=== PATIENT | female | born 1995 | race African-American/Black ===

== ENCOUNTER 2021-09-29 18:08 | Emergency (ER) | payer OTHER ==
[~2021-09-29] VITALS: Ht 175.3 cm; Wt 86.0 kg
[2021-09-29] MEDS ORDERED: ONDANSETRON HCL 4MG/2ML INJ IV STA (18:19)
[2021-09-29] MEDS ORDERED: MORPHINE SULFATE 4 MG/ML CPJ (NOT FOR IM USE) IV STA (18:19)
[2021-09-29] MEDS ORDERED: SODIUM CHLORIDE 0.9% 1,000 ML IV ONE (18:30)
[2021-09-29 19:28] LABS: BASOPHILS % 0.3 % (0.0-2.0); EOSINOPHILS % 0.4 % (0.0-5.0); HEMATOCRIT. 38.9 % (36.0-48.0); HEMOGLOBIN. 12.5 g/dL (12.0-16.0); LYMPHOCYTES % 23.9 % (20.0-50.0); MEAN CORPUSCULAR HEMOGLOBIN 28.3 pg (28.0-32.0); MEAN CORPUSCULAR VOLUME 87.8 fL (81.0-99.0); MEAN PLATELET VOLUME 8.8 fl (7.4-10.4); NEUTROPHILS % 69.4 % (40.0-76.0); PLATELET 284 x1000/uL (130-400); RED BLOOD CELL COUNT 4.43 mill/uL (4.2-5.4); RED CELL DISTRIBUTION WIDTH 16.1 % (11.6-14.6)
[2021-09-29 19:35] LABS: PROTHROMBIN TIME 10.9 sec (9.6-11.0)
[2021-09-29 19:38] LABS: HCG SCREEN NEGATIVE
[2021-09-29 19:39] LABS: CHLORIDE 106 mEq/L (98-107)
[2021-09-29 20:09] LABS: CLARITY URINE CLEAR (CLEAR); COLOR URINE YELLOW (YELLOW); KETONES URINE TRACE (NEGATIVE); LEUKOCYTE ESTERASE URINE TRACE (NEGATIVE); NITRITE URINE NEGATIVE (NEGATIVE); OCCULT BLOOD URINE NEGATIVE (NEGATIVE); PH URINE 7.5 (4.5-8.0); PROTEIN URINE NEGATIVE (NEGATIVE); SPECIFIC GRAVITY URINE 1.013 (1.005-1.030); UROBILINOGEN URINE 0.2 E.U./dL (0.2-1.0)
[2021-09-29] MEDS ORDERED: IBUP-2028 MT (21:06)
[2021-09-29] MEDS ORDERED: HYDR-4001 MT (21:06)
[2021-09-29] MEDS ORDERED: MORPHINE SULFATE 4 MG/ML CPJ (NOT FOR IM USE) IV ONE (21:15)
[2021-09-29 22:45] VITALS: BP 130/67
[2021-09-29] MEDS ORDERED: IOHEXOL-300 100 ML BOTTLE ONE (23:16)
== END 2021-09-29 22:48 | disposition home or self-care (01) ==
LOC: ER 18:08
DX: S20.219A Contusion of unspecified front wall of thorax, initial encounter (principal); R07.9 Chest pain, unspecified; R10.9 Unspecified abdominal pain; V43.52XA Car driver injured in collision with other type car in traffic accident, initial encounter; Y93.89 Activity, other specified; Y92.410 Unspecified street and highway as the place of occurrence of the external cause; Z88.8 Allergy status to other drugs, medicaments and biological substances
CPT/HCPCS: 36415; 71045; 71260; 72125; 72170; 74177; 80053; 81003; 83690; 84484; 84703; 85025; 85610; 96361; 96374; 96376; 99285; J2270; J2405; J7030; Q9967